=== PATIENT | male | born 1990 | race Caucasian/White ===

== ENCOUNTER 2021-04-16 12:59 | Outpatient (RCR) | payer BC, OTHER, SELFPAY ==
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
--- NOTE | 2021-04-22 15:17 | PCPTNOTE ---
On 04/22/21, the student, [Padmini Dominguez, [facility] ], provided care and completed [employer] documentation on this patient. I have reviewed the student's documentation and agree with the findings.
--- NOTE | 2021-04-22 16:56 | PCPTNOTE ---
On 04/22/21, the student, [ Padmini Dominguez, SP[facility]], provided care and completed [employer] documentation on this patient. I have reviewed the student's documentation and agree with the findings. Magali Galaviz, HELP DESK REP
--- NOTE | 2021-04-23 09:09 | PCPTNOTE ---
On 04/23/21, the student, [Padmini [facility]inguez, [facility] provided care and completed [employer] documentation on this patient. I have reviewed the student's documentation and agree with the findings.
--- NOTE | 2021-04-24 14:10 | PCPTNOTE ---
On 04/24/21, the student, [Ree Kang, SPT], provided care and completed [employer] documentation on this patient. I have reviewed the student's documentation and agree with the findings.
--- NOTE | 2021-05-03 16:15 | PCPTNOTE ---
On 05/03/21, the student, [Ree Kang, SPT], provided care and completed [employer] documentation on this patient. I have reviewed the student's documentation and agree with the findings.
--- NOTE | 2021-05-07 16:29 | PCPTNOTE ---
On 05/07/21, the student, [ Padmini Dominguez, [facility]], provided care and completed [employer] documentation on this patient. I have reviewed the student's documentation and agree with the findings.
--- NOTE | 2021-05-15 16:49 | PCPTNOTE ---
On 05/15/21, the student, [Ree Kang, SPT], provided care and completed [employer] documentation on this patient. I have reviewed the student's documentation and agree with the findings.
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
== END 2021-05-17 16:37 | disposition home or self-care (01) ==
LOC: CHSPT 12:59
PROVIDERS: PCP Nurse Practitioner; Visit Provider Family Medicine
DX: S89.92XD Unspecified injury of left lower leg, subsequent encounter (principal)
CPT/HCPCS: 97014; 97110; 97140; 97161; G0283